=== PATIENT | female | born 1965 | race Caucasian/White ===

== ENCOUNTER 2018-10-16 09:45 | Emergency (ER) | payer BC, OTHER ==
[~2018-10-16] VITALS: Ht 162.6 cm; Wt 72.6 kg
[2018-10-16 09:49] VITALS: BP 124/65
[2018-10-16] MEDS ORDERED: KETOROLAC TROMETH 60MG/2ML VIAL IM ONE (10:45)
[2018-10-16] MEDS ORDERED: METHOCARBAMOL 500 MG TAB PO ONE (10:45)
== END 2018-10-16 11:25 | disposition home or self-care (01) ==
LOC: ER 09:49
DX: M54.42 Lumbago with sciatica, left side (principal); Z90.49 Acquired absence of other specified parts of digestive tract; Z90.710 Acquired absence of both cervix and uterus; Z88.1 Allergy status to other antibiotic agents
CPT/HCPCS: 72100; 93005; 96372; 99283; J1885